=== PATIENT | female | born 1985 | race Caucasian/White ===

== ENCOUNTER 2019-05-30 16:23 | Inpatient (IN) ==
[2019-05-30] MEDS ORDERED: TYLENOL PO PRN (16:56)
[2019-05-30] MEDS ORDERED: NICOTINE GUM BUCCAL PRN (16:56)
[2019-05-30] MEDS ORDERED: PHENOBARBITAL IV PRN (16:56)
[2019-05-30] MEDS ORDERED: TUBERSOL ID ONE (16:56)
[2019-05-30] MEDS ORDERED: SENOKOT PO PRN (16:56)
[2019-05-30] MEDS ORDERED: ZOFRAN ODT PO PRN (16:56)
[2019-05-30] MEDS ORDERED: ZOFRAN IV PRN (16:56)
[2019-05-30] MEDS ORDERED: DULCOLAX PR PRN (16:56)
[2019-05-30] MEDS ORDERED: IMODIUM PO PRN ×2 (16:56)
[2019-05-30] MEDS ORDERED: D5W 1,000 ML IV PRN (16:56)
[2019-05-30] MEDS ORDERED: ZOFRAN IM PRN (16:56)
[2019-05-30] MEDS ORDERED: MAALOX PLUS LIQUID PO PRN (16:56)
[2019-05-30] MEDS ORDERED: LIBRIUM PO PRN (17:31)
[2019-05-30] MEDS ORDERED: TORADOL IV PRN (17:31)
[2019-05-30] MEDS ORDERED: BENTYL PO PRN (17:31)
[2019-05-30 17:46] LABS: HEMATOCRIT 40.3 % (37.0-47.0); HEMOGLOBIN 13.1 g/dL (12.0-16.0); MCH 28.4 PG (27-31); MCHC 32.5 g/dL (33-37); MCV 87.4 FL (81-99); MPV 9.9 FL (7.4-10.4); RBC 4.61 XMIL (4.2-5.4); RDW 13.7 % (11.5-14.5); WBC 5.26 X1000 (4.8-10.8)
[2019-05-30 17:58] LABS: INR 0.91; PROTIME 12.7 Seconds (11.0-16.0)
[2019-05-30 18:08] LABS: AGAP 11; ALBUMIN 4.1 g/dL (3.5-5.0); ALKALINE PHOSPHATASE 63 U/L (32-104); AMYLASE 41 U/L (20-200); BUN 10 mg/dL (8-22); CALCIUM 8.6 mg/dL (8.8-10.2); CHLORIDE 102 mmol/L (98-107); COSMO 278; CREATININE 0.5 mg/dL (0.5-0.9); ESTIMATED GFR > 60; GLUCOSE 98 mg/dL (70-104); GOT 33 U/L (10-30); GPT 32 U/L (10-36); LIPASE 37 U/L (13-60); POTASSIUM 3.8 mmol/L (3.5-5.1); SODIUM 140 mmol/L (136-145); TCO2 26 mmol/L (25-35); TOTAL PROTEIN 7.4 g/dL (6.3-8.3)
[2019-05-30] MEDS: NICODERM PATCH TD PRN (18:31)
[2019-05-30] MEDS: LIBRIUM PO SCH (18:31)
[2019-05-30] MEDS: ATARAX PO PRN (18:31)
[2019-05-30 19:06] LABS: URINE SOURCE CLEAN CATCH
[2019-05-30 19:17] LABS: UR AMPHETAMINES QUAL PRESUMPTIVE POSITIVE (NONE DETECT)
[2019-05-30 19:18] LABS: BILIRUBIN URINE NEGATIVE (NEGATIVE); BLOOD URINE NEGATIVE (NEGATIVE); CLARITY CLEAR (CLEAR); COLOR YELLOW; GLUCOSE URINE NEGATIVE (NEGATIVE); KETONE URINE TRACE mg/dL (NEGATIVE); LEUKOCYTES URINE TRACE (NEGATIVE); NITRITE URINE NEGATIVE (NEGATIVE); PH URINE 6.5; PROTEIN URINE TRACE mg/dL (NEGATIVE); SP GRAVITY URINE 1.025; UR BARBITUATES QUAL NONE DETECTED (NONE DETECT); UR BENZODIAZEPIN QUAL NONE DETECTED (NONE DETECT); UR CANNABINOIDS QUAL NONE DETECTED (NONE DETECT); UR COCAINE QUAL NONE DETECTED (NONE DETECT); UR METHADONE QUAL NONE DETECTED (NONE DETECT); UR METHAMPHETAMINE QUAL PRESUMPTIVE POSITIVE (NONE DETECT); UR OPIATES QUAL PRESUMPTIVE POSITIVE (NONE DETECT); UR OXYCODONE QUAL NONE DETECTED (NONE DETECT); UR PCP QUAL NONE DETECTED (NONE DETECT); UR PROPOXYPHENE QUAL NONE DETECTED (NONE DETECT); UR TCA QUAL NONE DETECTED (NONE DETECT); UROBILINOGEN URINE 1 mg/dL
[2019-05-30 19:47] LABS: URINE BACTERIA 1+ /HFP; URINE CAST NONE SEEN /LPF; URINE CRYSTAL NONE SEEN /HPF; URINE EPITHELIAL CELLS <10 /HPF (<10); URINE WBC <10 /HPF (<10); URINE YEAST NONE SEEN /HPF
[2019-05-31] MEDS: LIBRIUM PO SCH ×4 (00:10→17:12)
[2019-05-31] MEDS: PROTONIX PO SCH ×2 (05:17→06:22)
[2019-05-31] MEDS ORDERED: CATAPRES PO ONE (08:08)
[2019-05-31] MEDS: VITAMIN B-1 PO SCH (08:54)
[2019-05-31] MEDS: FOLIC ACID PO SCH (08:54)
[2019-05-31] MEDS: THERA M PLUS PO SCH (08:54)
[2019-05-31] MEDS: ROBAXIN PO PRN ×2 (13:30→21:49)
[2019-05-31] MEDS: ATARAX PO PRN (17:11)
[2019-05-31] MEDS: NICODERM PATCH TD PRN (17:12)
[2019-05-31] MEDS: TORADOL IM PRN (17:12)
--- NOTE | 2019-05-31 17:50 | PROGRESS NOTE ---
DATE: 05/31/2019 SUBJECTIVE: The patient notes that she is feeling okay. Still had a muscle ache still. Feels very sleepy. Denies any fevers or chills. OBJECTIVE: Vital Signs: Reviewed and stable. General: She is awake, alert. She is in no current respiratory distress. HEENT: Normocephalic. Neck: Supple. Cardiovascular: Regular rate. Chest: Clear. Abdomen: Soft. Extremities: Moves all extremities. Neurologic: No focal changes. Skin: Warm and dry. No rash. ASSESSMENT: 1. Nausea and vomiting. 2. Abdominal pain. 3. Myalgias. 4. Paresthesias 5. Opiate abuse, withdrawal, and stabilization. PLAN: We will continue patient in hospital. Continue symptomatic treatment and will follow. Continue counseling. cc: Marcelo Ackerman MD MTDD
--- NOTE | 2019-05-31 18:26 | HISTORY AND PHYSICAL ---
CHIEF COMPLAINT: Nausea. HISTORY OF PRESENT ILLNESS: This patient is a 34-year-old female who presented to [facility] secondary to nausea, vomiting, abdominal pain, myalgias and paresthesias. She has been using and abusing opiates. She has been trying, but the withdrawal symptoms have become too severe. She notes that she has had to start reusing to alleviate the symptoms. SOCIAL HISTORY: The patient is single. She is unemployed. Lives at home in [place]. PAST MEDICAL HISTORY: Significant for major depression, anxiety, ADD, migraines, history of kidney stones. She has had seizures x2 that were felt to be drug related and felt to be secondary to withdrawal. PAST SURGICAL HISTORY: She had an appendectomy and a history of tubal ligation in 2009. MEDICATIONS: No current medications. ALLERGIES: None. REVIEW OF SYSTEMS: CINA score was elevated to 29 secondary to nausea with frequent dry heaves, vomiting, abdominal pain and diarrhea, hot and cold temperature changes, sweating, frequent chills, frequent changes in temperatures and paresthesias. She has had some tremors and restlessness with decreased oral intake. She has had nasal drainage, watery eyes, runny nose. Denies any constipation, melena, or hematochezia. Denies hematemesis. Denies hematuria. Denies dysuria, frequency or urgency. Denies constipation, melena, or hematochezia. FAMILY HISTORY: Noncontributory. SUBSTANCE ABUSE HISTORY: The patient was in treatment in 2012 at [facility] for 10 days for an intentional overdose. She was at [facility] and stayed 3 weeks, left, and attempted suicide, and that is what ended her up at [facility]. In 2014 she was at [facility] for 21 days and remained sober for 6 months. In 2016 she started the [facility] 12-step program but did not finish. She started alcohol at 13. Drinks rarely. Started marijuana at 14 but did not really like it, so she did not continue. Started meth at 28. She has been smoking every other week, but says that she can take it or leave it. Started opiates at 27. Has been using [place] and then Roxicodone. She has progressed to heroin over this past year, currently using 0.5 to 1 gram a day. Started smoking at age 29 and currently smokes a half a pack a day. PHYSICAL EXAMINATION: VITAL SIGNS: Reviewed and stable. GENERAL: The patient is awake and alert. She is in no current respiratory distress. She is somewhat ill appearing. She is visibly anxious on exam, frequently moving about, unable to sit still. HEENT: Normocephalic. NECK: Supple. CV: Regular rate. CHEST: Clear. ABDOMEN: Soft. EXTREMITIES: Moves all extremities. NEUROLOGIC: No focal changes. SKIN: Warm and dry. No rash. ASSESSMENT: 1. Nausea, vomiting and abdominal pain. 2. Myalgias. 3. Paresthesias. 4. Paroxysmal sweating. 5. Opiate abuse withdrawal and stabilization. PLAN: Will continue the patient in the hospital and continue to follow. Further orders as needed. Will begin counseling and place her on a high-dose Librium taper. cc: Marcelo Ackerman MD MTDD
[2019-05-31] MEDS: MOTRIN PO PRN (21:50)
[2019-05-31] MEDS: SINEMET 25/100 PO PRN (21:50)
[2019-05-31] MEDS: SEROQUEL PO PRN (21:50)
[2019-06-01] MEDS: LIBRIUM PO SCH ×3 (02:53→18:41)
[2019-06-01] MEDS: DESYREL PO PRN (02:54)
[2019-06-01] MEDS: PROTONIX PO SCH (06:23)
[2019-06-01] MEDS: THERA M PLUS PO SCH (16:47)
[2019-06-01] MEDS: FOLIC ACID PO SCH (16:47)
[2019-06-01] MEDS: VITAMIN B-1 PO SCH (16:48)
--- NOTE | 2019-06-01 18:38 | PROGRESS NOTE ---
DATE: 06/01/2019 SUBJECTIVE: The patient is sleeping very soundly easily awakened. She is in no distress. PHYSICAL EXAMINATION: Vital Signs: Reviewed and stable. HEENT: Normocephalic. Neck: Supple. Cardiovascular: Regular rate. Chest: Clear. ASSESSMENT: 1. Nausea and vomiting. 2. Abdominal pain. 3. 'Myalgias. 4. Paresthesias. 5. Paroxysmal sweating. 6. Opiate abuse, withdrawal and stabilization. PLAN: We will continue patient in the hospital. Continue to taper. Continue Librium and will wean down as tolerated. We will continue counseling. Further orders as needed. cc: Marcelo Ackerman MD
[2019-06-01] MEDS: SINEMET 25/100 PO PRN (18:48)
[2019-06-01] MEDS: TORADOL IM PRN (18:48)
[2019-06-02] MEDS: LIBRIUM PO SCH (01:24)
[2019-06-02] MEDS: SEROQUEL PO PRN ×2 (01:28→22:12)
[2019-06-02] MEDS: SINEMET 25/100 PO PRN ×3 (01:28→22:12)
[2019-06-02] MEDS: MOTRIN PO PRN (01:28)
[2019-06-02] MEDS: ROBAXIN PO PRN (01:28)
[2019-06-02] MEDS: PROTONIX PO SCH ×2 (06:29→09:18)
[2019-06-02] MEDS ORDERED: CATAPRES PO ONE (08:32)
[2019-06-02] MEDS ORDERED: TORADOL IM ONE (08:33)
[2019-06-02] MEDS ORDERED: LIBRIUM PO SCH ×2 (09:00)
[2019-06-02] MEDS: THERA M PLUS PO SCH (09:18)
[2019-06-02] MEDS: VITAMIN B-1 PO SCH (09:18)
[2019-06-02] MEDS: FOLIC ACID PO SCH (09:18)
[2019-06-02] MEDS: ATARAX PO PRN ×2 (09:47→22:12)
[2019-06-02] MEDS: NICODERM PATCH TD PRN (22:05)
[2019-06-03] MEDS: PROTONIX PO SCH (06:44)
--- NOTE | 2019-06-03 08:25 | PROGRESS NOTE ---
DATE: 06/03/2019 SUBJECTIVE: Patient notes she feels completely terrible this morning, notes that her withdrawal symptoms have worsened. She is having muscle aches and paresthesias. She is having tremors. Notes she is having some nausea and abdominal pain. States she was feeling better until last night. Symptoms started worsening. OBJECTIVE: Vital Signs: Temperature 97.6 pulse 92, respiratory 20, blood pressure 124/66. General: Patient is standing at the side of the bed. She has visible sweating. She has some mild tremors. She is shaky. She is walking about. HEENT: Normocephalic. Neck: Supple. Cardiovascular: Regular rate. Chest: Clear and nonlabored. Abdomen: Soft. Extremities: Moves all extremities. Neurologic: She is awake, alert, oriented. She has no focal neurological changes. ASSESSMENT: 1. Nausea, vomiting, abdominal pain. 2. Paresthesias. 3. Paroxysmal sweating. 4. Tremors. 5. Opiate abuse withdrawal and stabilization. PLAN: At this point, we are going to give her 1 dose of clonidine and Toradol to try to help with her opiate withdrawal symptoms. I am going to increase her Librium back and let us see how she does. cc: Marcelo Ackerman MD
[2019-06-03] MEDS ORDERED: LIBRIUM PO SCH (09:00)
[2019-06-03] MEDS ORDERED: CATAPRES PO PRN (09:06)
[2019-06-03] MEDS ORDERED: MOTRIN PO PRN (09:07)
[2019-06-03] MEDS: VITAMIN B-1 PO SCH (09:14)
[2019-06-03] MEDS: THERA M PLUS PO SCH (09:14)
[2019-06-03] MEDS: FOLIC ACID PO SCH (09:14)
[2019-06-03] MEDS: LIBRIUM PO SCH ×2 (12:08→16:26)
--- NOTE | 2019-06-03 12:40 | PROGRESS NOTE ---
DATE: 06/03/2019 SUBJECTIVE: The patient notes she is feeling a lot better today than yesterday. Her withdrawal symptoms from yesterday have improved dramatically. Notes that she has slept most of the day yesterday. Denies any fevers or chills. Denies headaches. Denies focalized weakness. PHYSICAL EXAMINATION: Vital Signs: Reviewed. General: She is awake, alert. She is in no distress. HEENT: Normocephalic. Neck: Supple. Cardiovascular: Regular rate. Chest: Clear. Abdomen: Soft. Extremities: Moves all extremities. ASSESSMENT: 1. Nausea, vomiting. 2. Abdominal pain. 3. Myalgias. 4. Paresthesias. 5. Paroxysmal sweating. 6. Opiate abuse withdrawal and stabilization. 7. Chronic anxiety, depression. PLAN: We will continue patient in the hospital. Continue counseling. We will restart Librium as she is much more awake. We will stop Toradol and restart ibuprofen. We will continue to follow. cc: Marcelo Ackerman MD
[2019-06-03] MEDS: NICODERM PATCH TD PRN (21:36)
[2019-06-03] MEDS: MOTRIN PO PRN (21:37)
[2019-06-03] MEDS: ROBAXIN PO PRN (21:37)
[2019-06-03] MEDS: SEROQUEL PO PRN (21:37)
[2019-06-04] MEDS: DESYREL PO PRN ×2 (00:35→21:36)
[2019-06-04] MEDS: PROTONIX PO SCH (06:25)
[2019-06-04] MEDS: LIBRIUM PO SCH ×3 (08:00→18:53)
[2019-06-04] MEDS: FOLIC ACID PO SCH (09:39)
[2019-06-04] MEDS: THERA M PLUS PO SCH (09:39)
[2019-06-04] MEDS: VITAMIN B-1 PO SCH ×2 (09:42→09:47)
[2019-06-04 19:44] LABS: UR AMPHETAMINES QUAL NONE DETECTED (NONE DETECT); UR BARBITUATES QUAL NONE DETECTED (NONE DETECT); UR BENZODIAZEPIN QUAL PRESUMPTIVE POSITIVE (NONE DETECT); UR CANNABINOIDS QUAL NONE DETECTED (NONE DETECT); UR COCAINE QUAL NONE DETECTED (NONE DETECT); UR METHADONE QUAL NONE DETECTED (NONE DETECT); UR METHAMPHETAMINE QUAL NONE DETECTED (NONE DETECT); UR OPIATES QUAL PRESUMPTIVE POSITIVE (NONE DETECT); UR OXYCODONE QUAL NONE DETECTED (NONE DETECT); UR PCP QUAL NONE DETECTED (NONE DETECT); UR PROPOXYPHENE QUAL NONE DETECTED (NONE DETECT); UR TCA QUAL NONE DETECTED (NONE DETECT)
[2019-06-04] MEDS: SINEMET 25/100 PO PRN (20:31)
[2019-06-04] MEDS: ATARAX PO PRN (20:31)
[2019-06-04] MEDS: MOTRIN PO PRN (21:36)
[2019-06-04] MEDS: NICODERM PATCH TD PRN (21:36)
[2019-06-05] MEDS: MOTRIN PO PRN ×2 (04:19→12:37)
[2019-06-05] MEDS: SINEMET 25/100 PO PRN ×2 (04:20→12:37)
[2019-06-05] MEDS: ATARAX PO PRN ×2 (04:20→12:37)
[2019-06-05] MEDS: PROTONIX PO SCH (06:30)
[2019-06-05] MEDS: THERA M PLUS PO SCH (07:59)
[2019-06-05] MEDS: VITAMIN B-1 PO SCH (07:59)
[2019-06-05] MEDS: FOLIC ACID PO SCH (07:59)
[2019-06-05] MEDS: LIBRIUM PO SCH ×2 (07:59→12:28)
[2019-06-05 11:59] VITALS: BP 117/65
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
== END 2019-06-05 14:05 | disposition left against medical advice (07) | DRG 894 ==
LOC: P.MEDSURG 16:23 → SUATTDRO 16:23
PROVIDERS: ADMIT Family Medicine; ATTEND Family Medicine